=== PATIENT | male | born 1965 | race Caucasian/White ===

== ENCOUNTER 2020-11-26 07:25 | Day surgery (SDC) | payer OTHER, SELFPAY ==
[2020-11-26 07:43] VITALS: BP 158/83; PULSE 88; RESP 16; TEMP 36.4; O2SAT 100; BMI 24.5
[2020-11-26] MEDS: Lactated Ringers 1,000 ML 100 ML IV (07:49)
--- NOTE | 2020-11-26 07:49 | PCM.HP.BLA ---
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: No Is patient in pain?: No Allergies No Known Allergies Allergy (Unverified 11/04/20 13:22) Medications cetirizine 10 mg capsule 10 mg PO DAILY PRN 11/04/20 [History Confirmed 11/04/20] multivitamin 1 tab PO DAILY 11/04/20 [History Confirmed 11/04/20] omega-3 fatty acids 1,000 mg capsule 1,000 mg PO DAILY 11/04/20 [History Confirmed 11/04/20] omeprazole 20 mg capsule,delayed release 20 mg PO DAILY 11/04/20 [History Confirmed 11/04/20] triamcinolone acetonide 55 mcg nasal spray aerosol 1 spray INTRANASAL DAILY 11/04/20 [History Confirmed 11/04/20] PFSH Medical History Acid reflux Environmental allergies Personal history of colonic polyps Surgical History S/P bilateral inguinal hernia repair Family History Brother Hypertension Asthma Cancer CAD (coronary artery disease) Son Asthma Mother Cancer Social History Smoking Status: Former smoker alcohol intake: current alcohol intake frequency: a few times a month HPI HPI HPI: MALIKA HEALY, is a 55 M who presents to the office today for EGD and colonoscopy due to history of colon polyps in 2018 2 tubular adenomas and patient has been on omeprazole for 5 to 6 years it it does control the symptoms however he is never had an EGD. Patient denies any family history of colon cancer. Patient denies any chronic abdominal pain/nausea/vomiting. Patient has bowel movements daily denies any blood. Patient has received a moviprep from [facility] General General: No weight change, appetite, fatigue, colon cancer, breast cancer or weakness HEENT HEENT: No difficulty swallowing, eye injury, eye surgery, swollen glands or hoarseness Endo Endocrine: No thyroid disease, diabetes mellitus, thyroid cancer, Hair loss, heat intolerance or cold intolerance Skin Skin: No rash or changing moles Breast Breast: No left breast lump, right breast lump, nipple discharge, breast pain, abnormal mammogram, abnormal US or breast enlargement Musc Musculoskeletal: No back problems, arthritis, rheumatoid arthritis, gout or joint pain Cardio Cardiovascular: No murmur, pacemaker, heart disease, atrial fibrillation, high blood pressure, heart attack, heart stent, palpitations, shortness of breat with exertion or chest pain Psych Psychiatric: No depression, anxiety or hearing voices Resp Respiratory: No shortness of breath, No sleep apnea, No cough, No COPD, No asthma, No emphysema and No wheezing Gastro Gastrointestinal: No abdominal pain, No nausea or vomiting, No diarrhea, No constipation, No blood in stool, Yes acid reflux, Yes hemorrhoids, No ulcers, No gallbladder problem and No black,tarry stools Anjel Hematologic: No blood thinners, No blood disorders, No bleeding, No anemia and No blood clots Neuro Neurologic: No system reviewed and no additional complaints, except as documented, No as per HPI, No abnormal gait, No abnormal hearing, No abnormal movements, No abnormal speech, No behavioral changes, No burning sensations, No confusion, No convulsions, No disequilibrium, No dizziness, No localized weakness, No frequent falls, No headache(s), No lack of coordination, No loss of vision, No memory loss, No numbness, No other visual disturbances, No radicular pain, No restless legs, No sensory deficit, No syncope, No tingling, No tremor(s), No weakness and No other Exam Const General: cooperative, healthy appearing, comfortable and no acute distress Neck Neck: normal visual inspection Resp Effort & Inspection: normal respiratory effort Cardio Rate: regular rate GI Inspection: non-distended Palpation: soft, no guarding and nontender Skin General: no rashes or lesions noted Neuro General: patient oriented x3 Psych Affect: normal affect Assessment and Plan Assessment and Plan (1) Personal history of colonic polyps: Status: Acute (2) Acid reflux: Status: Acute Plan - Dr. Gavi Walker MD: I have discussed the above with the patient. I have offered the patient EGD and colonoscopy for evaluation. I have explained the risks/benefits of the procedure and described the procedure. I have discussed the risks with the patient, including but not limited to: infection, bleeding, perforation of the GI tract requiring emergency surgery, inability to complete the procedure, injury to any internal organs, complications of anesthesia, etc. - the patient understands and agrees to proceed. I have answered all the patient's questions to the patient's satisfaction and the patient has no further questions. The patient has been given instructions for the colon cleansing preparation. MoviPrep, 1 day of clears Gavi Walker M.D. Pager: [phone] [facility] [address] [place] [address], [address] [place] [address] Office: [phone] Coding Level of Care Code Off vis,new,level 3 Diagnoses Personal history of colonic polyps Z86.010 Acid reflux K21.9 11/04/20 1340<Electronically signed by Gavi Walker MD>Date Gavi Walker MD
--- NOTE | 2020-11-26 08:45 | IMM_PTH ---
PATIENT: MALIKA HAELY LOC: [facility] U#:[id number] AGE/SX: 55/M ROOM: RE11/26/[address]: Dr. Gavi Walker MD : 1965 BED: DIS: 11/26/2020 SPEC #: [id number] RECD: 11/26/20 11:56 STATUS: JOSE LUIS RESue #: [id number] HALINA: 11/26/20 08:[address]: Gavi Walker DEPT: IMMUNOHISTOCHEMISTRY RECD BY: Anya Najera ENTERED: 11/26/20 11:56 SP TYPE: IMMUNO OTHR DR: [facility] Tissues: A - Stomach, NOS Procedures: H Pylori (initial) PHYSICIAN & INSTITUTION [place] [id number] SPECIMEN INFORMATION: Tissue Source: A ? Antrum Clinical Info: Colonic polyps Specimen Number: [id number] CPT code: 81393 METHODOLOGY: Deparaffinized sections of prefer/formalin-fixed tissue or PAP/DQ stained slides are incubated with monoclonal/polyclonal antibodies/oligonucleotide probes. Localization is made via biotin free immunoperoxidase method. Appropriate controls are performed and reacted as expected. Results on target cell population are indicated in the following table: RESULTS: ANTIBODY / CLONE RESULT Block A H Pylori (polyclonal) negative These tests were developed and their performance characteristics determined by [facility]. They may not have been cleared or approved by the U.S. Food and Drug Administration. The FDA has determined that such clearance or approval is not necessary. INTERPRETATION: A. Antrum biopsy: Negative for Helicobacter pylori organisms. ELLEN:pamela 11/27/2020
--- NOTE | 2020-11-26 08:45 | EGD_PTH ---
PATIENT: MALIKA HEALY LOC: EN U#:[id number] AGE/SX: 55/M ROOM: RE11/26/[address]: Dr. Gavi Walker MD : 1965 BED: DIS: 11/26/2020 SPEC #: [id number] RECD: 11/26/20 11:29 STATUS: JOSE LUIS SEBLE #: [id number] HALINA: 11/26/20 08:[address]: Gavi Walker DEPT: SURGICAL PATHOLOGY RECD BY: Leslie Curry ENTERED: 11/26/20 11:55 SP TYPE: EGD BIOPSY RAFAT DR: [facility] Tissues: A - Gastric mucous membrane B - Stomach, NOS C - Rectum, NOS Procedures: Special Stain Group II Surgery Specimen Level IV Alcian Blue/PAS (control) HEADER OPERATION: Colonoscopy, EGD ([facility] [place]) PRE-OP DIAGNOSIS: Colonic polyps, acid reflux TISSUE SUBMITTED: A - Biopsy antrum for H. pylori and path, B - Biopsy GE junction, C - Biopsy rectum MICROSCOPIC DIAGNOSIS A. Antrum, biopsy: Mild gastritis. See microscopic description and comment. B. GE junction, biopsy: A fragment of gastroesophageal mucosa with mild chronic inflammation. Intestinal metaplasia (goblet cell metaplasia) not identified. See comment. C. Rectum, biopsy: Tubular adenoma. SJ:rg 11/27/2020 COMMENT A. The results of immunohistochemistry for Helicobacter pylori will be reported separately ([id number]). B. Alcian blue/PAS stain with matched control is used in the evaluation of the specimen. MICROSCOPIC DESCRIPTION Slides are reviewed. The specimen shows fragments of gastric mucosa with chronic inflammatory cell infiltrates in the lamina propria consisting of lymphocytes and plasma cells, consistent with mild chronic gastritis. GROSS DESCRIPTION A - Received in fixative is one container labeled with the patient's name and designated antrum biopsy. The specimen consists of one irregular fragment of light rojas soft tissue that measures 0.3 x 0.3 x 0.1 cm. The specimen is totally submitted in one cassette. B - Received in fixative is one container labeled with the patient's name and designated GE junction. The specimen consists of one irregular fragment of light rojas soft tissue that measures 0.3 x 0.3 x 0.1 cm. The specimen is totally submitted in one cassette. C - Received in fixative is one container labeled with the patient's name and designated rectum. The specimen consists of two irregular fragments of light rojas soft tissue that in aggregate measure 0.5 x 0.5 x 0.1 cm. The specimen is totally submitted in one cassette. / SJ:pamela 11/26/20 TC:1 CPT: 79590 x3, 40861
[2020-11-26 09:25] VITALS: BP 112/70; BP 158/83; PULSE 74; RESP 16; TEMP 36.3; O2SAT 96
--- NOTE | 2020-11-26 09:28 | OP.EGD_ITS ---
Patient Name: Den Curtis Procedure Date: 11/26/2020 8:46 AM Date of : 1965 Age: 55 Procedure: Upper GI endoscopy Indications: Esophageal reflux Providers: Gavi Walker MD Medicines: Monitored Anesthesia Care Patient Profile: This is a 55 year old male. Complications: No immediate complications. Procedure: Pre-Anesthesia Assessment: - Prior to the procedure, a History and Physical was performed, and patient medications and allergies were reviewed. The patient's tolerance of previous anesthesia was also reviewed. The risks and benefits of the procedure and the sedation options and risks were discussed with the patient. All questions were answered, and informed consent was obtained. Prior Anticoagulants: The patient has taken no previous anticoagulant or antiplatelet agents. ASA Grade Assessment: Per anesthesia. After reviewing the risks and benefits, the patient was deemed in satisfactory condition to undergo the procedure. After obtaining informed consent, the endoscope was passed under direct vision. Throughout the procedure, the patient's blood pressure, pulse, and oxygen saturations were monitored continuously. The Endoscope was introduced through the mouth, and advanced to the second part of duodenum. The upper GI endoscopy was accomplished without difficulty. The patient tolerated the procedure well. Scope In: 8:51:29 AM Scope Out: 8:56:13 AM Total Procedure Duration Time 0 hours 4 minutes 44 seconds Findings: The Z-line was variable and was found 40 cm from the incisors. Biopsies were taken with a cold forceps for histology. Mildly erythematous mucosa without bleeding was found in the gastric antrum. Biopsies were taken with a cold forceps for histology. Biopsies were taken with a cold forceps for Helicobacter pylori cultures. The examined duodenum was normal. The cardia and gastric fundus were normal on retroflexion. Impression: - Z-line variable, 40 cm from the incisors. Biopsied. - Erythematous mucosa in the antrum. Biopsied. - Normal examined duodenum. Recommendation: - Await pathology results. - Discharge patient to home. - Resume previous diet. - Continue present medications. Procedure Code(s): --- Professional --- 60861, Esophagogastroduodenoscopy, flexible, transoral; with biopsy, single or multiple Diagnosis Code(s): --- Professional --- K22.8, Other specified diseases of esophagus K31.89, Other diseases of stomach and duodenum K21.9, Gastro-esophageal reflux disease without esophagitis CPT copyright 2017 [employer]. All rights reserved. The codes documented in this report are preliminary and upon medical records library professor review may be revised to meet current compliance requirements. MD Gavi Walker MD 11/26/2020 9:28:19 AM This report has been signed electronically. Number of Addenda: 0 Note Initiated On: 11/26/2020 8:46 AM
--- NOTE | 2020-11-26 09:29 | OP.CCLET_ITS ---
11/26/2020 [facility] Re : Upper GI endoscopy procedure for [facility] This procedure was performed on Thursday, November 26, 2020. My impressions and recommendations are as follows: Impressions : - Z-line variable, 40 cm from the incisors. Biopsied. - Erythematous mucosa in the antrum. Biopsied. - Normal examined duodenum. Recommendations : - Await pathology results. - Discharge patient to home. - Resume previous diet. - Continue present medications. My findings are described in the full procedure note, which is enclosed. If I can be of further assistance, please feel free to contact me at Doctor phone number(s): , Work: . Sincerely, MD Gavi Walker MD 11/26/2020 9:28:19 AM This report has been signed electronically.
[2020-11-26 09:30] VITALS: BP 105/66; BP 158/83; PULSE 92; RESP 16; O2SAT 97
--- NOTE | 2020-11-26 09:32 | OP.COLON_ITS ---
Patient Name: Den Curtis Procedure Date: 11/26/2020 8:59 AM Date of : 1965 Age: 55 Procedure: Colonoscopy Indications: High risk colon cancer surveillance: Personal history of colonic polyps Providers: Gavi Walker MD Medicines: Monitored Anesthesia Care Patient Profile: This is a 55 year old male. Last Colonoscopy: 2017. Complications: No immediate complications. Procedure: Pre-Anesthesia Assessment: - Prior to the procedure, a History and Physical was performed, and patient medications and allergies were reviewed. The patient's tolerance of previous anesthesia was also reviewed. The risks and benefits of the procedure and the sedation options and risks were discussed with the patient. All questions were answered, and informed consent was obtained. Prior Anticoagulants: The patient has taken no previous anticoagulant or antiplatelet agents. ASA Grade Assessment: Per anesthesia. After reviewing the risks and benefits, the patient was deemed in satisfactory condition to undergo the procedure. After I obtained informed consent, the scope was passed under direct vision. Throughout the procedure, the patient's blood pressure, pulse, and oxygen saturations were monitored continuously. The Colonoscope was introduced through the anus and advanced to the cecum, identified by appendiceal orifice and ileocecal valve. The colonoscopy was performed without difficulty. The patient tolerated the procedure well. The quality of the bowel preparation was good. Scope In: 9:00:40 AM Scope Withdrawal Time 0 hours 10 minutes 43 seconds Scope Out: 9:21:16 AM Total Procedure Duration Time 0 hours 20 minutes 36 seconds Findings: Hemorrhoids were found on perianal exam. Non-bleeding external and internal hemorrhoids were found. The hemorrhoids were Grade I (internal hemorrhoids that do not prolapse). A less than 5 mm polyp was found in the rectum. The polyp was sessile. The polyp was removed with a cold biopsy forceps. Resection and retrieval were complete. The exam was otherwise without abnormality. Impression: - Hemorrhoids found on perianal exam. - Non-bleeding external and internal hemorrhoids. - One less than 5 mm polyp in the rectum, removed with a cold biopsy forceps. Resected and retrieved. - The examination was otherwise normal. Recommendation: - Discharge patient to home. - Resume previous diet. - Continue present medications. - Await pathology results. - Repeat colonoscopy in 5 years for surveillance based on pathology results. Procedure Code(s): --- Professional --- 79874, Colonoscopy, flexible; with biopsy, single or multiple Diagnosis Code(s): --- Professional --- Z86.010, Personal history of colonic polyps K64.0, First degree hemorrhoids K62.1, Rectal polyp CPT copyright 2017 [employer]. All rights reserved. The codes documented in this report are preliminary and upon market analyst review may be revised to meet current compliance requirements. MD Gavi Walker MD 11/26/2020 9:31:43 AM This report has been signed electronically. Number of Addenda: 0 Note Initiated On: 11/26/2020 8:59 AM
--- NOTE | 2020-11-26 09:32 | OP.CCLET_ITS ---
11/26/2020 [facility] Re : Colonoscopy procedure for [facility] This procedure was performed on Thursday, November 26, 2020. My impressions and recommendations are as follows: Impressions : - Hemorrhoids found on perianal exam. - Non-bleeding external and internal hemorrhoids. - One less than 5 mm polyp in the rectum, removed with a cold biopsy forceps. Resected and retrieved. - The examination was otherwise normal. Recommendations : - Discharge patient to home. - Resume previous diet. - Continue present medications. - Await pathology results. - Repeat colonoscopy in 5 years for surveillance based on pathology results. My findings are described in the full procedure note, which is enclosed. If I can be of further assistance, please feel free to contact me at Doctor phone number(s): , Work: . Sincerely, MD Gavi Walker MD 11/26/2020 9:31:43 AM This report has been signed electronically.
[2020-11-26 09:35] VITALS: BP 125/62; BP 158/83; PULSE 83; RESP 16; O2SAT 98
[2020-11-26 09:40] VITALS: BP 115/68; BP 158/83; PULSE 75; RESP 16; TEMP 36.2; O2SAT 100
[2020-11-26 10:00] VITALS: BP 158/83
== END 2020-11-26 10:17 | disposition home or self-care (01) ==
LOC: EN 07:25 → AC 07:25
PROVIDERS: Referring Provider Surgery; Visit Provider Surgery
PROC: 0DJD8ZZ Inspection of Lower Intestinal Tract, Via Natural or Artificial Opening Endoscopic (ICD-10-PCS; CPT 45378; principal; 2020-11-26 08:40)
DX: Z12.11 Encounter for screening for malignant neoplasm of colon (principal); D12.8 Benign neoplasm of rectum; K29.70 Gastritis, unspecified, without bleeding; K21.9 Gastro-esophageal reflux disease without esophagitis; K64.0 First degree hemorrhoids; K64.4 Residual hemorrhoidal skin tags; K22.8 Other specified diseases of esophagus; K31.89 Other diseases of stomach and duodenum; J45.909 Unspecified asthma, uncomplicated; Z79.899 Other long term (current) drug therapy; Z86.010 Personal history of colon polyps; Z87.891 Personal history of nicotine dependence
CPT/HCPCS: 43239; 45380; 87426; 88305; 88313; 88342; C9803; J7120; J2405